=== PATIENT | male | born 1985 | race Caucasian/White ===

== ENCOUNTER 2022-02-18 10:36 | Emergency (ER) | payer BC ==
[~2022-02-18] VITALS: Ht 177.8 cm; Wt 88.0 kg
== END 2022-02-18 11:49 | disposition home or self-care (01) ==
LOC: ER 10:36
DX: S31.31XA Laceration without foreign body of scrotum and testes, initial encounter (principal); W45.8XXA Other foreign body or object entering through skin, initial encounter
CPT/HCPCS: 12001; 99282

== ENCOUNTER → 2022-03-04 | Outpatient (CLI) | payer BC | END | disposition home or self-care (01) | LOC: LAB SHORT 10:15 → LAB 10:15 | DX: T81.30XA Disruption of wound, unspecified, initial encounter (principal) | CPT/HCPCS: 87070; 87075; 87077; 87147; 87186; 87205 ==